=== PATIENT | male | born 1955 | race Caucasian/White ===

== ENCOUNTER 2016-11-25 09:00 | Emergency (ER) | payer MEDICARE ==
[2016-11-25 09:22] VITALS: BP 121/95
[2016-11-25 10:46] LABS: CHLORIDE,CL 99 mmol/L (98-115); SODIUM,NA 138 mmol/L (136-145)
--- NOTE | 2016-12-09 19:41 | EDM.PDOC ---
ED UPPER BACK/NECK PAIN/INJURY - General Chief Complaint: Neck Problem Stated Complaint: MEMORY LOSS Time Seen by Provider: 11/25/16 09:17 Source of Information: Reports: Patient - History of Present Illness INITIAL COMMENTS - FREE TEXT/NARRATIVE: PT STATES HE HAS HAD DIFFICULTY REMEMBERING THINGS LATELY. THIS HAS WORSEN OVER PAST FEW YEARS. REQUESTS A CT TO FIND OUT WHAT THE PROBLEM IS. ADMITS TO INTERMITTENT YO'S, NECK DISCOMFORT, BUT DENIES ANY FEVER, TRAUMA, BLURRY VISION , FACIAL NUMBNESS, CP, N/V/D, OR SOB. Timing/Duration: Reports: Getting worse, Other (OVER YEARS) Severity: mild Improves with: Reports: None Worsens with: Reports: None Associated Symptoms: Reports: Denies symptoms - Related Data Allergies/ADRs: Allergies Allergy/AdvReac Type Severity Reaction Status Date / Time pregabalin Allergy Rash Verified 11/25/16 09:23 simvastatin Allergy Muscle Verified 11/25/16 09:23 Aches Home Meds: Home Meds ALPRAZolam [Alprazolam] 2 mg PO QID 11/25/16 [History] Bioflav,Lemon/Vit BComp&C [Lipo-Flavonoid Plus Caplet] 1 tab PO TID 11/25/16 [ History] Dicyclomine HCl [Bentyl] 10 mg PO TID 11/25/16 [History] Ferrous Sulfate 324 mg PO BIDMEALS 11/25/16 [History] Hydrocodone/Acetaminophen [Hydrocodon-Acetaminophn 10-325] 2 tab PO Q6H PRN 11/12 [History] Lidocaine [Lidocaine 5% Paraben-Free] 140 mg TRDERM DAILY 11/25/16 [History] Lisinopril [Prinivil] 20 mg PO DAILY 11/25/16 [History] Rosuvastatin Calcium 20 mg PO DAILY 11/25/16 [History] Past Medical History HEENT History: Reports: Impaired vision Cardiovascular History: Reports: High cholesterol, Hypertension Respiratory History: Reports: None Gastrointestinal History: Reports: Chronic constipation, Colon polyp, Hemorrhoids, Irritable bowel syndrome Genitourinary History: Reports: None Musculoskeletal History: Reports: Arthritis, Back pain, chronic, Fracture, Fibromyalgia, Neck pain, chronic, Osteoarthritis Neurological History: Reports: Brain injury, Headaches, chronic, Head trauma, Migraines Psychiatric History: Reports: Anxiety, Panic attack, PTSD Endocrine/Metabolic History: Reports: Vitamin D deficiency Hematologic History: Reports: Anemia, Iron deficiency Dermatologic History: Reports: None - Infectious Disease History Infectious Disease History: Reports: Influenza - Past Surgical History Respiratory Surgical History: Reports: None GI Surgical History: Reports: Colonoscopy, Hernia, inguinal Male Surgical History: Reports: None Endocrine Surgical History: Reports: None Neurological Surgical History: Reports: None Musculoskeletal Surgical History: Reports: Arthroscopic knee, Carpal tunnel Dermatological Surgical History: Reports: None Social & Family History - Tobacco Use Smoking Status *Q: Former Smoker Years of Tobacco use: 40 Packs/Tins Daily: 1 Used Tobacco, but Quit: Yes Month Tobacco Last Used: October Second Hand Smoke Exposure: No - Caffeine Use Caffeine Use: Reports: Coffee - Recreational Drug Use Recreational Drug Use: Yes Drug Use in Last 12 Months: No Recreational Drug Type: Reports: Marijuana/Hashish ED ROS GENERAL - Review of Systems Review Of Systems: ROS reveals no pertinent complaints other than HPI. Constitutional: Reports: no symptoms HEENT: Reports: No symptoms Respiratory: Reports: No Symptoms Cardiovascular: Reports: No symptoms Endocrine: Reports: no symptoms GI/Abdominal: Reports: No symptoms : Reports: no symptoms Musculoskeletal: Reports: no symptoms Skin: Reports: no symptoms Neurological: Reports: Confusion, Headache. Denies: Dizziness, Trouble Speaking , Weakness, Change in Speech, Gait Disturbance Psychiatric: Reports: No symptoms Hematologic/Lymphatic: Reports: no symptoms Immunologic: Reports: no symptoms ED EXAM, UPPER BACK/NECK PAIN - Physical Exam Exam: See Below Exam Limited By: No limitations General Appearance: alert, WD/WN, no apparent distress Eye Exam: bilateral eye: normal inspection Ears Exam: normal external exam, normal canal, hearing grossly normal, normal TMs Nose Exam: normal inspection, normal mucousa, no blood Throat/Mouth Exam: Normal inspection, Normal oropharynx, No airway compromise Head Exam: atraumatic, normocephalic Neck Exam: non-tender, full range of motion, normal alignment, normal inspection Cardiovascular/Respiratory: regular rate, rhythm, normal peripheral pulses, normal breath sounds, no respiratory distress GI/Abdominal: normal bowel sounds, soft, non tender, no organomegaly, no distention, no abnormal bruit, no mass Back Exam: normal inspection, full range of motion Extremities: normal inspection, normal range of motion, non-tender, no pedal edema Neurologic: comb winder II-XII nml as tested, no motor/sensory deficits, normal mood/ affect, oriented x 3 Psychiatric: normal affect, normal mood Skin Exam: Normal color, Warm/dry Lymphatic: no adenopathy Course - Vital Signs Last Recorded V/S: Last Vital Signs Temp 98.1 F 11/25/16 09:17 Pulse 78 11/25/16 09:17 Resp 18 11/25/16 09:17 BP 121/95 H 11/25/16 09:17 Pulse Ox 100 11/25/16 09:17 - Orders/Labs/Meds Labs: Laboratory Tests 11/25/16 11/25/16 11/25/16 Range/Units 10:00 10:10 10:10 WBC 8.7 (5.0-10.0) 10^3/uL RBC 4.39 L (4.50-6.00) 10^6/uL Hgb 14.2 (13.0-17.0) g/dL Hct 41.9 (40.0-52.0) % MCV 95.3 H (82.0-92.0) fL MCH 32.4 H (27.0-31.0) pg MCHC 34.0 (32.0-36.0) g/dL RDW 12.1 (11.5-14.5) % Plt Count 299 (150-300) 10^3/uL MPV 6.9 L (7.4-10.4) fL Neut % (Auto) 64.1 (50.0-70.0) % Lymph % (Auto) 26.4 (20.0-40.0) % [place] % (Auto) 7.4 (2.0-8.0) % Eos % (Auto) 1.4 (1.0-3.0) % Baso % (Auto) 0.7 (0.0-1.0) % Neut # 5.6 (2.5-7.0) 10^3/uL Lymph # 2.3 (1.0-4.0) 10^3/uL [place] # 0.6 (0.1-0.8) 10^3/uL Eos # 0.1 (0.1-0.3) 10^3/uL Baso # 0.1 (0.0-0.1) 10^3/uL Sodium 138 (136-145) mmol/L Potassium 4.5 (3.3-5.3) mmol/L Chloride 99 (98-115) mmol/L Carbon Dioxide 30.3 (21.0-32.0) mmol/L BUN 27 H (6-25) mg/dL Creatinine 0.83 (0.51-1.17) mg/dL Est Cr Clr Drug Dosing 100.80 mL/min Estimated GFR (MDRD) > 60 mL/min Glucose 99 (70-110) mg/dL Calcium 9.3 (8.7-10.3) mg/dL Total Bilirubin 0.2 (0.2-1.0) mg/dL AST 13 L (15-37) U/L ALT 31 (12-78) U/L Alkaline Phosphatase 55 (46-116) IU/L Total Protein 7.6 (6.4-8.2) g/dL Albumin 4.38 (3.00-4.80) g/dL Specimen Type Urincc Urine Color Yellow (YELLOW) Urine Appearance Clear (CLEAR) Urine pH 5.5 (5.0-9.0) Ur Specific [place] 1.010 (1.005-1.030) Urine Protein Negative (NEGATIVE) mg/dL Urine Glucose (UA) Negative (NEGATIVE) mg/dL Urine Ketones Negative (NEGATIVE) mg/dL Urine Occult Blood Trace-intact H (NEGATIVE) Urine Nitrite Negative (NEGATIVE) Urine Bilirubin Negative (NEGATIVE) Urine Urobilinogen 0.2 (0.2-1.0) E.U./dL Ur Leukocyte Esterase Negative (NEGATIVE) Urine RBC Not seen /HPF Urine WBC Not seen /HPF Ur Epithelial Cells Not seen /LPF Urine Bacteria Not seen (NONE TO FEW) /HPF - Re-Assessments/Exams Free Text/Narrative Re-Assessment/Exam: 12/09/16 19:40 PT AFEBRILE, NONTOXIC APPEARING, ACTING APPROPRIATE, RECALL MEMORY GOOD AT THIS TIME. NO DEFICIT APPRECIATED. WILL SCHEDULE FOR MRI AND CLINIC F/U. Departure - Departure Time of Disposition: 19:41 Disposition: Home, Self-Care 01 Condition: good Clinical Impression: Memory difficulties Referrals: Elida Nash MD [Primary Care Provider] - Forms: ED Department Discharge Additional Instructions: Continue with appointment with Dr. Guidry as scheduled. MRI to be done December 02 at 9 am.
== END 2016-11-25 11:00 | disposition home or self-care (01) ==
LOC: KA.ED 09:00
DX: R41.3 Other amnesia (principal); E78.00 Pure hypercholesterolemia, unspecified; I10 Essential (primary) hypertension; M19.90 Unspecified osteoarthritis, unspecified site; D64.9 Anemia, unspecified; F41.9 Anxiety disorder, unspecified; Z79.899 Other long term (current) drug therapy; Z87.891 Personal history of nicotine dependence; Z88.8 Allergy status to other drugs, medicaments and biological substances
CPT/HCPCS: 36415; 80053; 81001; 85025; 99283

== ENCOUNTER 2019-12-18 13:00 | Emergency (ER) | payer MEDICAID, MEDICARE ==
[2019-12-18] MEDS: Sodium Chloride 0.9% 1,000 ML IV ONE (13:23)
[2019-12-18] MEDS: Ketorolac 30 MG/ML SDV IVPUSH ONE (13:33)
[2019-12-18 13:49] LABS: ANION GAP 13.8 mmol/L (5-15); CHLORIDE,CL 103 mmol/L (98-115); SODIUM,NA 141 mmol/L (136-145)
--- NOTE | 2019-12-18 13:49 | EDM.PDOC ---
ED HPI GENERAL MEDICAL PROBLEM - General Chief Complaint: General Stated Complaint: right flank pain Time Seen by Provider: 12/18/19 13:00 Source of Information: Reports: Patient History Limitations: Reports: No Limitations - History of Present Illness INITIAL COMMENTS - FREE TEXT/NARRATIVE: 64 YO WM presents to ER with complaints of right flank/right lower quadrant abdominal pain and right testicular pain which began 2.5 weeks ago. Pt reports the pain became more severe last night prompting ER visit. Pt has history of chronic low back pain and cervical stenosis which he is currently on pain medication. Pt denies any paraesthesias, or saddle anesthesia. Pt denies any lower extremity weakness. Pt denies fever/chills, no nausea/vomiting, no shortness of breath. Pt reports history of gallstones. Pt reports history of chronic bilateral knee pain and shoulder pain. Pt was seen in clinic recently for medication refill. Pt takes hydrocodone for pain at home. Onset: Unknown/Unsure Duration: Day(s): (worse lasr 2 days), Chronic, Getting Worse Location: Reports: Abdomen, Back Quality: Reports: Sharp Severity: Moderate Worsens with: Reports: None Associated Symptoms: Denies: Chest Pain, Fever/Chills, Nausea/Vomiting, Shortness of Breath Right Lower Abdominal Pain Score (Numeric/FACES): 10 - Related Data Allergies Allergy/AdvReac Type Severity Reaction Status Date / Time pregabalin Allergy Rash Verified 11/25/16 09:23 simvastatin Allergy Muscle Verified 11/25/16 09:23 Aches Home Meds: Home Meds ALPRAZolam [Alprazolam] 2 mg PO QID 11/25/16 [History] Dicyclomine HCl [Bentyl] 10 mg PO TID 11/25/16 [History] Hydrocodone/Acetaminophen [Hydrocodon-Acetaminophn 10-325] 2 tab PO Q6H PRN 11/12 [History] Lidocaine [Lidocaine 5% Paraben-Free] 140 mg TRDERM DAILY 11/25/16 [History] Lisinopril [Prinivil] 20 mg PO DAILY 11/25/16 [History] Rosuvastatin Calcium 20 mg PO DAILY 11/25/16 [History] Diclofenac Sodium [Voltaren 1% Gel] 1 applic TOP QID PRN 12/18/19 [History] Methyl Salicylate/Menthol [Muscle Rub] 4 gm TOP QID PRN 12/18/19 [History] Tamsulosin HCl [Flomax] 0.4 mg PO DAILY 12/18/19 [History] Past Medical History HEENT History: Reports: Impaired Vision Cardiovascular History: Reports: High Cholesterol, Hypertension Respiratory History: Reports: None Gastrointestinal History: Reports: Chronic Constipation, Colon Polyp, Hemorrhoids, Irritable Bowel Syndrome Genitourinary History: Reports: None Musculoskeletal History: Reports: Arthritis, Back Pain, Chronic, Fracture, Fibromyalgia, Neck Pain, Chronic, Osteoarthritis Neurological History: Reports: Brain Injury, Headaches, Chronic, Head Trauma, Migraines Psychiatric History: Reports: Anxiety, Panic Attack, PTSD Endocrine/Metabolic History: Reports: Vitamin D Deficiency Hematologic History: Reports: Anemia, Iron Deficiency Dermatologic History: Reports: None - Infectious Disease History Infectious Disease History: Reports: Influenza - Past Surgical History GI Surgical History: Reports: Colonoscopy, Hernia, Inguinal Musculoskeletal Surgical History: Reports: Arthroscopic Knee, Carpal Tunnel Social & Family History - Caffeine Use Caffeine Use: Reports: Coffee ED ROS GENERAL - Review of Systems Review Of Systems: See Below Constitutional: Reports: No Symptoms HEENT: Reports: No Symptoms Respiratory: Reports: No Symptoms Cardiovascular: Reports: No Symptoms Endocrine: Reports: No Symptoms GI/Abdominal: Reports: Abdominal Pain : Reports: Flank Pain. Denies: Dysuria, Frequency, Hematuria, Urgency, Urinary Retention Musculoskeletal: Reports: No Symptoms Skin: Reports: No Symptoms Neurological: Reports: No Symptoms Psychiatric: Reports: No Symptoms Hematologic/Lymphatic: Reports: No Symptoms Immunologic: Reports: No Symptoms ED EXAM, GENERAL - Physical Exam Exam: See Below Exam Limited By: No Limitations General Appearance: Alert, WD/WN, No Apparent Distress Eye Exam: Bilateral Eye: PERRL Head: Atraumatic, Normocephalic Neck: Normal Inspection, Supple, Non-Tender, Full Range of Motion Respiratory/Chest: No Respiratory Distress, Lungs Clear, Normal Breath Sounds, No Accessory Muscle Use, Chest Non-Tender Cardiovascular: Normal Peripheral Pulses, Regular Rate, Rhythm, No Edema, No Gallop, No JVD, No Murmur, No Rub GI/Abdominal: Normal Bowel Sounds, Soft, Non-Tender, No Organomegaly, No Distention, No Abnormal Bruit, No Mass Back Exam: Full Range of Motion, CVA Tenderness (R) Extremities: Normal Inspection, Normal Range of Motion, Non-Tender, Normal Capillary Refill, No Pedal Edema Neurological: Alert, Oriented, CN II-XII Intact, Normal Cognition, Normal Gait, Normal Reflexes, No Motor/Sensory Deficits Psychiatric: Normal Affect, Normal Mood Skin Exam: Warm, Dry, Intact, Normal Color, No Rash Lymphatic: No Adenopathy Course - Vital Signs Last Recorded V/S: Last Vital Signs Temp 36.0 C L 12/18/19 13:06 Pulse 83 12/18/19 13:06 Resp 22 H 12/18/19 13:06 BP 159/102 H 12/18/19 13:06 Pulse Ox 95 12/18/19 13:06 - Orders/Labs/Meds Orders: Active Orders 24 hr Category Date Time Status Abdomen Pelvis wo Cont [CT] Stat Exams 12/18/19 13:33 Ordered Labs: Laboratory Tests 12/18/19 12/18/19 12/18/19 Range/Units 13:15 13:20 13:20 WBC 5.71 (5.00-10.00) 10^3/uL RBC 4.03 L (4.50-6.00) 10^6/uL Hgb 13.3 (13.0-17.0) g/dL Hct 38.8 L (40.0-52.0) % MCV 96.3 H (82.0-92.0) fL MCH 33.0 H (27.0-31.0) pg MCHC 34.3 (32.0-36.0) g/dL RDW 11.9 (11.5-14.5) % Plt Count 250 (150-400) 10^3/uL MPV 8.7 (7.4-10.4) fL Immature Gran % (Auto) 0.5 (0.0-5.0) % Neut % (Auto) 63.6 (50.0-70.0) % Lymph % (Auto) 26.8 (20.0-40.0) % [place] % (Auto) 7.7 (2.0-8.0) % Eos % (Auto) 0.9 L (1.0-3.0) % Baso % (Auto) 0.5 (0.0-1.0) % Immature Gran # (Auto) 0.03 (0.00-0.50) 10^3/uL Neut # (Auto) 3.63 (2.50-7.00) 10^3/uL Lymph # (Auto) 1.53 (1.00-4.00) 10^3/uL [place] # (Auto) 0.44 (0.10-0.80) 10^3/uL Eos # (Auto) 0.05 L (0.10-0.30) 10^3/uL Baso # (Auto) 0.03 (0.00-0.10) 10^3/uL Sodium 141 (136-145) mmol/L Potassium 3.5 (3.3-5.3) mmol/L Chloride 103 (98-115) mmol/L Carbon Dioxide 27.7 (21.0-32.0) mmol/L Anion Gap 13.8 (5-15) mmol/L BUN 13 (6-25) mg/dL Creatinine 0.72 (0.51-1.17) mg/dL Est Cr Clr Drug Dosing 111.85 mL/min Estimated GFR (MDRD) > 60 mL/min Glucose 105 H (75 - 99) mg/dL Calcium 9.2 (8.7-10.3) mg/dL Total Bilirubin 0.3 (0.2-1.0) mg/dL AST 12 L (15-37) U/L ALT 23 (12-78) U/L Alkaline Phosphatase 45 L (46-116) IU/L Total Protein 6.9 (6.4-8.2) g/dL Albumin 4.03 (3.00-4.80) g/dL Specimen Type Urinvoid Urine Color Yellow (YELLOW) Urine Appearance Clear (CLEAR) Urine pH 6.5 (5.0-9.0) Ur Specific [place] 1.015 (1.005-1.030) Urine Protein Negative (NEGATIVE) mg/dL Urine Glucose (UA) Negative (NEGATIVE) mg/dL Urine Ketones Negative (NEGATIVE) mg/dL Urine Occult Blood Small H (NEGATIVE) Urine Nitrite Negative (NEGATIVE) Urine Bilirubin Negative (NEGATIVE) Urine Urobilinogen 0.2 (0.2-1.0) E.U./dL Ur Leukocyte Esterase Negative (NEGATIVE) Urine RBC Not seen (0-5) /HPF Urine WBC 0-5 (0-5) /HPF Ur Epithelial Cells Not seen /LPF Urine Bacteria Not seen (NONE TO FEW) /HPF Meds: Medications Discontinued Medications Generic Name Dose Route Start Last Admin Trade Name Sulaiman PRN Reason Stop Dose Admin Sodium Chloride 1,000 mls @ 999 mls/hr 12/18/19 13:15 12/18/19 13:23 Normal Saline IV 12/18/19 14:15 999 mls/hr .BOLUS ONE Administration Ketorolac Tromethamine 30 mg 12/18/19 13:15 12/18/19 13:33 Toradol IVPUSH 12/18/19 13:16 30 mg ONETIME ONE Administration - Radiology Interpretation Free Text/Narrative:: CT abd and pelvis- nonobstructing renal stone on right with mild constipation; no hydronephrosis Departure - Departure Time of Disposition: 15:14 Disposition: Home, Self-Care 01 Condition: Good Clinical Impression: Renal calculus or stone Chronic back pain Qualifiers: Back pain location: low back pain Back pain laterality: right Sciatica presence : without sciatica Qualified Code(s): M54.5 - Low back pain; G89.29 - Other chronic pain Constipation Qualifiers: Constipation type: unspecified constipation type Qualified Code(s): K59.00 - Constipation, unspecified - Discharge Information Instructions: Renal Colic, [id number], Constipation, Adult, Chronic Back Pain , [id number] Referrals: Elida Nash MD [Primary Care Provider] - Forms: ED Department Discharge Additional Instructions: 1. discharge home 2. continue hydrocodone 10/325 every 4 hours and as needed 3. continue xanax 1mg every 8 hours as needed 4. motrin 600mg every 6 hours as needed x 5 days 5. follow up with PCP for further evaluation and treatment 6. return to ER for worsening symptoms Sepsis Event Note - Evaluation Sepsis Screening Result: No Definite Risk - Focused Exam Vital Signs: Vital Signs Temp Pulse Resp BP Pulse Ox 12/18/19 13:06 36.0 C L 83 22 H 159/102 H 95 Date Exam was Performed: 12/18/19 Time Exam was Performed: 14:21 - My Orders Last 24 Hours: My Active Orders 12/18/19 13:33 Abdomen Pelvis wo Cont [CT] Stat - Assessment/Plan Last 24 Hours: My Active Orders 12/18/19 13:33 Abdomen Pelvis wo Cont [CT] Stat Assessment:: 1. Chronic back pain 2. constipation 3. nonobstructing right renal stone without hydronephrosis Plan: 1. discharge home 2. continue hydrocodone 10/325 every 4 hours and as needed 3. continue xanax 1mg every 8 hours as needed 4. motrin 600mg every 6 hours as needed x 5 days 5. follow up with PCP for further evaluation and treatment 6. return to ER for worsening symptoms
--- NOTE | 2019-12-18 14:22 | CT ---
[id number] CT/CT Abdomen Pelvis WO IV EXAM: ABDOMEN AND PELVIS CT WITHOUT CONTRAST INDICATION: Signs and symptoms of right renal stone. COMPARISON: October 16, 2003. DISCUSSION: There is a punctate nonobstructing right intrarenal calculus in the upper pole. No ureteral calculus or hydronephrosis. No left-sided calculi. Mildly prominent stool volume in the proximal colon. Tortuosity of the abdominal aorta which is mildly ectatic, but does not demonstrate colten aneurysmal dilation. Unenhanced images of the liver, gallbladder, pancreas, spleen, adrenal glands, small bowel and appendix are unremarkable. No adenopathy, free air free fluid. Degenerative changes in the spine. Mild to moderate convex right curvature centered in the upper lumbar spine. IMPRESSION: 1. Punctate nonobstructing right intrarenal calculus. No ureteral calculus or hydronephrosis is identified. Dajuan Peres MD 12/18/19 1427 Thank you for allowing us to participate in the care of your patient.
[2019-12-18 15:09] VITALS: BP 150/95; PULSE 78
== END 2019-12-18 15:30 | disposition home or self-care (01) ==
LOC: KA.ED 13:00
DX: N20.0 Calculus of kidney (principal); K59.00 Constipation, unspecified; E78.00 Pure hypercholesterolemia, unspecified; I10 Essential (primary) hypertension; F41.9 Anxiety disorder, unspecified; Z79.899 Other long term (current) drug therapy; Z88.8 Allergy status to other drugs, medicaments and biological substances
CPT/HCPCS: 74176; 80053; 81001; 85025; 96361; 96374; 99284; 99284-25; J1885; J7030